=== PATIENT | male | born 1955 | race Two or more races ===

== ENCOUNTER 2018-10-04 21:20 | Emergency (ER) | payer MEDICAID ==
[~2018-10-04] VITALS: Ht 152.4 cm; Wt 65.3 kg
[2018-10-04 21:34] VITALS: Ht 152.4 cm; Wt 65.3 kg
[2018-10-04 23:06] VITALS: BP 165/95
== END 2018-10-04 23:06 | disposition home or self-care (01) ==
LOC: ED 21:20
DX: S39.012A Strain of muscle, fascia and tendon of lower back, initial encounter (principal); V49.88XA Car occupant (driver) (passenger) injured in other specified transport accidents, initial encounter; Y93.89 Activity, other specified; Y92.89 Other specified places as the place of occurrence of the external cause; Y99.8 Other external cause status